=== PATIENT | female | born 1980 | race Caucasian/White ===

== ENCOUNTER 2021-01-10 10:16 | Emergency (ER) | payer OTHER, MEDICAID, SELFPAY ==
[2021-01-10] VITALS (8 sets, daily range): BP systolic 132–162; BP diastolic 70–102; PULSE 87–96; RESP 14–18; TEMP 36.6; O2SAT 96–100; BMI 21.3
[2021-01-10 10:55] LABS: Add Manual Diff / Slide Review NO; Basophils Absolute Auto 0 /uL (0-100); Basophils Percent Auto 0.2 % (0-2); Eosinophils Absolute Auto 100 /uL (0-450); Eosinophils Percent Auto 0.7 % (2-4); Hematocrit 42.5 % (36-46); Hemoglobin 14.3 g/dL (12.0-16.0); Lymphocytes Absolute Auto 1800 /uL (1100-4500); Lymphocytes Percent Auto 23.4 % (25-40); Mean Corpuscular HGB Conc 33.6 % (30-36); Mean Corpuscular Hemoglobin 31.5 PG (26-34); Mean Corpuscular Volume 93.7 fL (80-100); Monocytes Absolute Auto 500 /uL (0-900); Monocytes Percent Auto 7.1 % (3-14); Neutrophils Absolute Auto 5200 /uL (1500-7000); Neutrophils Percent Auto 68.6 % (50-75); Platelet Count 255 X10^3/uL (150-400); Red Blood Cell Count 4.54 X10^6/uL (4.0-5.2); Red Cell Distribution Width 13.6 % (11.6-14.8); White Blood Cell Count 7.6 X10^3/uL (4.5-11.0)
[2021-01-10 11:01] LABS: HEMOLYSIS < 15 (0-50); INR 1.1 (0.9-1.3); Prothrombin Time 11.9 SECONDS (10.1-12.7)
[2021-01-10 11:04] LABS: PTT Partial Thromboplastin Tim 33 SECONDS (26.4-36.2)
[2021-01-10 11:07] LABS: Alanine Aminotransferase 9 IU/L (<35); Albumin 4.5 g/dL (3.5-5.0); Albumin Globulin Ratio 1.4 (1.0-2.8); Alkaline Phosphatase 56 U/L (38-126); Aspartate Aminotransferase 21 IU/L (14-36); BUN Creatinine Ratio 13.2 (6-22); Bilirubin Total 0.3 mg/dL (0.2-1.3); Blood Urea Nitrogen 7 mg/dL (7-17); Calcium 9.5 mg/dL (8.4-10.2); Carbon Dioxide 25 mmol/L (22-32); Chloride 104 mmol/L (98-107); Estimated Glomerular Filt Rate > 60.0 mL/min (>60); Globulin 3.3 g/dL (1.7-4.1); Glucose 104 mg/dL (70-100); Lipase 30 U/L (23-300); Potassium 3.9 mmol/L (3.4-5.1); Total Protein 7.8 g/dL (6.3-8.2)
[2021-01-10 11:18] LABS: Sodium 136 mmol/L (137-145)
--- NOTE | 2021-01-10 11:20 | PC.NURSE ---
patient up amblitory to the restroom
[2021-01-10] MEDS: KETOROLAC 60 MG/2 ML VIAL 15 MG IV (11:50)
[2021-01-10] MEDS: ONDANSETRON 4 MG/2 ML INJ IV (11:50)
--- NOTE | 2021-01-10 11:51 | DI.CT.S_ITS ---
PROCEDURE: CT ABDOMEN PELVIS W CON INDICATIONS: pain, mulitple surgeries TECHNIQUE: After the administration of intravenous contrast, 5 mm thick sections acquired from the diaphragm to the symphysis. 5 mm coronal and sagittal reformats were acquired. For radiation dose reduction, the following was used: automated exposure control, adjustment of mA and/or kV according to patient size. COMPARISON: None. FINDINGS: Image quality: Excellent. ABDOMEN: Lung bases: Lung bases are clear. Heart size is normal. Solid organs: Liver is normal in size and enhancement. Gallbladder wall is not thickened. Biliary system is non dilated. Pancreas enhances normally. Spleen is normal in size and enhancement. No adrenal nodules. Kidneys demonstrate normal size and enhancement, without hydronephrosis. Peritoneum and bowel: There is a moderate amount of stool seen within the colon. Scrutiny is given to the appendix. The appendix is partially seen inferior to the cecum, as on series 2, image 63 and on series 4 image 17 and on series 5 image 53. No focal right lower quadrant inflammatory changes are seen. No dilated loops of small bowel are seen. No free air or significant free fluid can be seen. Nodes and vessels: No retroperitoneal or mesenteric adenopathy by size criteria. Aorta and inferior vena cava are normal in size. Miscellaneous: No ventral hernias. PELVIS: Genitourinary: Bladder wall thickness is normal. This patient is status post hysterectomy. No adnexal masses are seen. Miscellaneous: No inguinal hernias or adenopathy. Bones: No suspicious bony lesions. No vertebral body compression fractures. Focal L4-L5 and L5-S1 degenerative change can be seen. Minimal levoconvex lumbar scoliotic curvature can be seen. IMPRESSION: There is a moderate amount of stool seen within the colon. Please correlate with an underlying history of constipation. No bowel obstruction. Normal appendix. Incidental note is made of: Hysterectomy Focal lower lumbar spine degenerative change Dictated by: Thien Ballesteros M.D. on 01/10/2021 at 11:00 Approved by: Thien Ballesteros M.D. on 01/10/2021 at 11:02
--- NOTE | 2021-01-10 11:56 | ED_ITS ---
HPI - Abdominal Pain General Chief Complaint: Abdominal Pain Stated Complaint: back, pelvic, and abdominal pain Time Seen by Provider: 01/10/21 11:30 Source: patient Mode of arrival: Ambulatory Limitations: no limitations History of Present Illness HPI narrative: Patient is a 40-year-old female who has multiple abdominal and pelvic floor surgeries presenting with chronic worsening abdominal and pelvic pain over the last 1 month. She said last year she had a total hysterectomy secondary to fibroids previous to that she had multiple rectal surgeries for an abscess and fistulas. She has had ongoing pelvic abdominal and rectal pain which she says is worse over the last month and a half and significantly worse today. She is supposed to be driving home versus 8 hours away but secondary to pain she is unable to. She mostly takes Tylenol and ibuprofen for it. She has had some light vaginal spotting dark brown which was a very light a couple days ago but none today. He denies any nausea or vomiting. She has multiple side effects to opiates so she tries not to take and. MD complaint: abdominal pain Pain Consistency: constant Severity: severe Quality: cramping, fullness and sharp Related Data Allergies Allergy/AdvReac Type Severity Reaction Status Date / Time No Known Drug Allergies Allergy Verified 01/10/21 10:30 Review of Systems Review of Systems Narrative: GENERAL: Denies chills, fatigue, malaise, fever, sweats, travel HEENT: Denies sinus pain, ear pain, sore throat, difficulty swallowing, neck pain RESPIRATORY: Denies dyspnea, cough, wheezing, hemoptysis, sputum. CARDIOVASCULAR: Denies chest pain, palpitations, orthopnea, edema GASTROINTESTINAL: See HPI : Denies dysuria, frequency, incontinence, hematuria, urinary retention, flank pain. MUSCULOSKELETAL: Denies weakness, joint pain, or bony pain SKIN: No rash, no erythema, no pruritus NEUROLOGIC: Denies weakness, dizziness, headache, numbness, change in speech, confusion PSYCHIATRIC: No concerning psychosocial issues. 12 point review of systems is negative except for those stated above and HPI Patient History Medical History Perirectal abscess Surgical History Status post hysterectomy Social History Smoking Status: Current every day smoker Smoking Status: Current every day smoker alcohol intake frequency: 0-2 drinks per day Substance Use Type: does not use Exam Initial Vital Signs Initial Vital Signs: Vital Signs Temperature 97.9 F 01/10/21 10:20 Pulse Rate 88 01/10/21 10:20 Respiratory Rate 18 01/10/21 10:20 Blood Pressure 145/92 H 01/10/21 10:20 Pulse Oximetry 99 01/10/21 10:20 GENERAL: Thin 40-year-old female appears in discomfort and in no acute distress. HEENT: Head atraumatic,EOMI, pupils reactive, face symmetric, moist mucous membranes CARDIOVASCULAR: Regular rate and rhythm without murmurs, rubs or gallops. RESPIRATORY: Breath sounds equal bilaterally, no wheezes rales or rhonchi. ABDOMEN: Soft, mild tenderness no guarding or rebound PELVIC: External genitalia is normal, no vaginal bleeding, mild normal appearing vaginal discharge, no odor, no cervical identified : No CVA tenderness EXTREMITIES: Normal range of motion, no clubbing or edema. Neurovascularly intact NEUROLOGICAL: Alert and oriented x4.Normal gait and speech. SKIN: Warm, dry, no laceration, no petechiae, no rashes or lesions. Course Orders Ordered: ED Orders 01/10/21 10:46 Complete Blood Count AUTO DIFF Stat Comprehensive Metabolic Panel Stat Lipase Stat Partial Thromboplastin Time Stat Prothrombin Time INR Stat 01/10/21 11:51 CT abdomen pelvis w con Stat 01/10/21 13:49 Chlamydia/Gonoc/Myco Genital Stat Genital Culture Stat Wet Prep Tric BV Linda Stat Discontinued Medications Ketorolac Tromethamine (Ketorolac 60 Mg/2 Ml Vial) 15 mg IV NOW ONE Stop: 01/10/21 11:40 Last Admin: 01/10/21 11:50 Dose: 15 mg Documented by: JELANI Morphine Sulfate (Morphine 4 Mg/Ml Inj) 4 mg IV NOW ONE Stop: 01/10/21 13:16 Last Admin: 01/10/21 13:17 Dose: 4 mg Documented by: JELANI Morphine Sulfate (Morphine 2 Mg/Ml Inj) 2 mg IV NOW ONE Stop: 01/10/21 13:59 Last Admin: 01/10/21 14:02 Dose: 2 mg Documented by: JELANI Ondansetron HCl (Ondansetron 4 Mg/2 Ml Inj) 4 mg IV NOW ONE Stop: 01/10/21 11:40 Last Admin: 01/10/21 11:50 Dose: 4 mg Documented by: JELANI Vital Signs Vital signs: Vital Signs - 8 hr 01/10/21 10:20 01/10/21 10:34 01/10/21 11:00 Temperature 97.9 F Pulse Rate 88 88 87 Respiratory Rate 18 Blood Pressure 145/92 H 132/79 Pulse Oximetry 99 97 100 01/10/21 11:30 01/10/21 11:53 01/10/21 12:00 Temperature Pulse Rate 89 89 90 Respiratory Rate Blood Pressure 148/70 H 136/86 138/84 Pulse Oximetry 100 100 99 01/10/21 12:30 01/10/21 14:09 Temperature Pulse Rate 90 96 H Respiratory Rate 14 Blood Pressure 138/84 162/102 H Pulse Oximetry 100 96 MDM - Abdominal Pain Lab Data Attestation: I reviewed the patient's lab results. Result diagrams: 01/10/21 10:46 01/10/21 10:46 Labs: Lab Results 01/10/21 01/10/21 01/10/21 Range/Units 10:46 10:46 10:46 WBC 7.6 (4.5-11.0) X10^3/uL RBC 4.54 (4.0-5.2) X10^6/uL Hgb 14.3 (12.0-16.0) g/dL Hct 42.5 (36-46) % MCV 93.7 (80-100) fL MCH 31.5 (26-34) PG MCHC 33.6 (30-36) % RDW 13.6 (11.6-14.8) % Plt Count 255 (150-400) X10^3/uL Neut % (Auto) 68.6 (50-75) % Lymph % (Auto) 23.4 L (25-40) % [place] % (Auto) 7.1 (3-14) % Eos % (Auto) 0.7 L (2-4) % Baso % (Auto) 0.2 (0-2) % Neut # (Auto) 5200 (9866-4799) /uL Lymph # (Auto) 1800 (9687-6328) /uL [place] # (Auto) 500 (0-900) /uL Eos # (Auto) 100 (0-450) /uL Baso # (Auto) 0 (0-100) /uL PT 11.9 (10.1-12.7) SECONDS INR 1.1 (0.9-1.3) APTT 33 (26.4-36.2) SECONDS Sodium 136 L (137-145) mmol/L Potassium 3.9 (3.4-5.1) mmol/L Chloride 104 (98-107) mmol/L Carbon Dioxide 25 (22-32) mmol/L BUN 7 (7-17) mg/dL Creatinine 0.53 (0.52-1.04) mg/dL Estimated GFR > 60.0 (>60) mL/min BUN/Creatinine Ratio 13.2 (6-22) Glucose 104 H (70-100) mg/dL Calcium 9.5 (8.4-10.2) mg/dL Total Bilirubin 0.3 (0.2-1.3) mg/dL AST 21 (14-36) IU/L ALT 9 (<35) IU/L Alkaline Phosphatase 56 (38-126) U/L Total Protein 7.8 (6.3-8.2) g/dL Albumin 4.5 (3.5-5.0) g/dL Globulin 3.3 (1.7-4.1) g/dL Albumin/Globulin Ratio 1.4 (1.0-2.8) Lipase 30 (23-300) U/L Point of care testing: Urine Dip Bedside Urine Glucose Negative Bedside Urine Bilirubin - Negative Bedside Urine Ketone +/- 5 Urine Specific [place] 1.005 Bedside Urine Occult Blood - Negative Bedside Urine pH 6.5 Bedside Urine Protein - Negative Bedside Urine Urobilinogen - Negative Bedside Urine Nitrite - Negative Bedside Urine Leukocytes - Negative Esterase Imaging Data CT scan - abdomen/pelvis: Radiologist's Impression: PROCEDURE: CT ABDOMEN PELVIS W CON INDICATIONS: pain, mulitple surgeries TECHNIQUE: After the administration of intravenous contrast, 5 mm thick sections acquired from the diaphragm to the symphysis. 5 mm coronal and sagittal reformats were acquired. For radiation dose reduction, the following was used: automated exposure control, adjustment of mA and/or kV according to patient size. COMPARISON: None. FINDINGS: Image quality: Excellent. ABDOMEN: Lung bases: Lung bases are clear. Heart size is normal. Solid organs: Liver is normal in size and enhancement. Gallbladder wall is not thickened. Biliary system is non dilated. Pancreas enhances normally. Spleen is normal in size and enhancement. No adrenal nodules. Kidneys demonstrate normal size and enhancement, without hydronephrosis. Peritoneum and bowel: There is a moderate amount of stool seen within the colon. Scrutiny is given to the appendix. The appendix is partially seen inferior to the cecum, as on series 2, image 63 and on series 4 image 17 and on series 5 image 53. No focal right lower quadrant inflammatory changes are seen. No dilated loops of small bowel are seen. No free air or significant free fluid can be seen. Nodes and vessels: No retroperitoneal or mesenteric adenopathy by size criteria. Aorta and inferior vena cava are normal in size. Miscellaneous: No ventral hernias. PELVIS: Genitourinary: Bladder wall thickness is normal. This patient is status post hysterectomy. No adnexal masses are seen. Miscellaneous: No inguinal hernias or adenopathy. Bones: No suspicious bony lesions. No vertebral body compression fractures. Focal L4-L5 and L5-S1 degenerative change can be seen. Minimal levoconvex lumbar scoliotic curvature can be seen. IMPRESSION: There is a moderate amount of stool seen within the colon. Please correlate with an underlying history of constipation. No bowel obstruction. Normal appendix. Incidental note is made of: Hysterectomy Focal lower lumbar spine degenerative change Dictated by: Thien Ballesteros M.D. on 01/10/2021 at 11:00 MDM Narrative Medical decision making narrative: Patient has chronic ongoing pelvic pain from multiple surgeries. At this time blood work exam and CT are overall reassuring. I do not suspect acute infection at this time. She is given morphine which does help with some pain. At this time I recommend she follow-up with her primary care provider some specialists in [place] hometown. Discharge Plan Departure Patient Disposition: Home Clinical Impression: Chronic female pelvic pain Instructions: Chronic Pelvic Pain-Female Activity Restrictions/Additional Instructions: *You have been diagnosed with chronic pelvic pain *What to do: At this time blood work is overall reassuring CT scan does not show any acute abnormality. Recommend following up with your specialist and [facility] provider regards to pain management and further evaluation as needed *Continue to take medications as directed *Follow up with your primary care provider in 2-3 days *Return to ER if you should have and vaginal bleeding, fever, persistent vomiting or any new, worsening or concerning symptoms
[2021-01-10] MEDS: MORPHINE 4 MG/ML INJ IV (13:17)
[2021-01-10] MEDS: MORPHINE 2 MG/ML INJ IV (14:02)
[2021-01-13 12:09] LABS: Chlamydia trachomatis Negative (Negative); Mycoplasma genitalium Negative (Negative); Neisseria gonorrhoeae Negative (Negative)
== END 2021-01-10 14:11 | disposition home or self-care (01) ==
PROVIDERS: Emergency Provider Emergency Medicine
DX: R10.2 Pelvic and perineal pain (principal); G89.29 Other chronic pain
CPT/HCPCS: 36415; 74177; 80053; 81003; 83690; 85025; 85610; 85730; 87070; 87077; 87205; 87210; 87491; 87563; 87591; 96374; 96375; 96376; 99284; J1885; J2270; J2405; Q9967